=== PATIENT | female | born 1975 | race Caucasian/White ===

== ENCOUNTER 2017-10-17 11:42 | Emergency (ER) | payer BC, MEDICARE ==
[2017-10-17] MEDS ORDERED: FENTANYL REMOVAL DOCUMENTATION MISC XX ×2 (13:15)
[2017-10-17] MEDS: fentaNYL 12 MCG/HR PATCH TOP (13:44)
[2017-10-17] MEDS: fentaNYL 25 MCG/HR PATCH TOP (13:45)
== END 2017-10-17 13:58 | disposition home or self-care (01) ==
LOC: M ED 11:42
DX: M54.17 Radiculopathy, lumbosacral region (principal); W01.0XXA Fall on same level from slipping, tripping and stumbling without subsequent striking against object, initial encounter; Y92.9 Unspecified place or not applicable; Y93.9 Activity, unspecified; G43.909 Migraine, unspecified, not intractable, without status migrainosus; J45.909 Unspecified asthma, uncomplicated; D64.9 Anemia, unspecified; Z98.84 Bariatric surgery status; Z79.899 Other long term (current) drug therapy; Z88.6 Allergy status to analgesic agent; Z91.89 Other specified personal risk factors, not elsewhere classified
CPT/HCPCS: 99283

== ENCOUNTER 2017-10-30 20:28 | Emergency (ER) | payer BC, MEDICARE ==
[2017-10-30] MEDS ORDERED: FENTANYL REMOVAL DOCUMENTATION MISC XX ×2 (20:45)
[2017-10-30] MEDS: fentaNYL 12 MCG/HR PATCH TOP (20:45)
[2017-10-30] MEDS: fentaNYL 25 MCG/HR PATCH TOP (21:00)
== END 2017-10-30 22:16 | disposition home or self-care (01) ==
LOC: M ED 20:28
DX: M54.17 Radiculopathy, lumbosacral region (principal); R51 Headache; J45.909 Unspecified asthma, uncomplicated; Z98.84 Bariatric surgery status; Z79.899 Other long term (current) drug therapy; Z88.6 Allergy status to analgesic agent; Z91.89 Other specified personal risk factors, not elsewhere classified
CPT/HCPCS: 99282

== ENCOUNTER 2018-08-01 08:42 | Emergency (ER) | payer BC, MEDICARE ==
[2018-08-01] MEDS: MORPHINE 4 MG/ML 1ML VIAL/SYRINGE (J2270) IM (09:26)
== END 2018-08-01 10:09 | disposition home or self-care (01) ==
LOC: M ED 08:42
DX: M54.5 Low back pain (principal); J45.909 Unspecified asthma, uncomplicated; D64.9 Anemia, unspecified; K27.9 Peptic ulcer, site unspecified, unspecified as acute or chronic, without hemorrhage or perforation; Z98.84 Bariatric surgery status; Z88.8 Allergy status to other drugs, medicaments and biological substances; Z91.048 Other nonmedicinal substance allergy status
CPT/HCPCS: J2270